=== PATIENT | female | born 1970 | race American Indian/Alaskan Native ===

== ENCOUNTER 2017-07-26 11:09 | Emergency (ER) | payer MEDICAID, OTHER ==
[2017-07-26 11:48] VITALS: BP 145/83
--- NOTE | 2017-07-26 13:05 | XRay Report ---
RIGHT WRIST, 4 VIEWS: History: wrist pain, injury. The scapholunate interval is borderline widened measuring 4 mm. Scapholunate ligament injury could be considered. The bony structures are intact. No fracture or dislocation. No significant degenerative changes. The soft tissues are unremarkable. IMPRESSION: Findings suggestive of scapholunate ligament injury. Please correlate with the patient's clinical presentation.
== END 2017-07-26 14:02 ==
LOC: ED 11:09
DX: M25.531 Pain in right wrist (principal)